=== PATIENT | male | born 1990 | race Caucasian/White ===

== ENCOUNTER 2018-01-14 20:12 | Emergency (ER) | payer OTHER ==
[2018-01-14 22:40] LABS: KETONE, URINE AUTO RFX NEGATIVE (NEGATIVE); LEUKOCYTE ESTERASE UR AUTO RFX NEGATIVE (NEGATIVE); MUCUS, URINE RFX SMALL (NEGATIVE); NITRITE, URINE AUTO RFX NEGATIVE (NEGATIVE); RBC, URINE AUTO RFX 0 /HPF (0-3); SPECIFIC GRAVITY UR AUTO RFX 1.021 (1.002-1.035); SQUAM EPITHELIAL CELL UR AURFX 0 /HPF (0-6); WBC, URINE AUTO RFX 0 /HPF (0-3)
[2018-01-14] MEDS: IBUPROFEN 400 MG TAB PO (23:45)
[2018-01-14] MEDS: cefTRIAXone SOD 250 MG VIAL (J0696) IM (23:45)
[2018-01-14] MEDS: LevoFLOXacin 500 MG TABLET PO (23:45)
[2018-01-15] MEDS ORDERED: LIDOCAINE 1% MDV 20ML VIAL As Ordered (00:03)
[2018-01-15 00:21] LABS: CHLAMYDIA DNA AMPLIFICATION NEGATIVE (NEGATIVE); GC DNA AMPLIFICATION NEGATIVE (NEGATIVE)
== END 2018-01-15 00:48 | disposition home or self-care (01) ==
LOC: M ED 01-15 00:48
DX: N45.1 Epididymitis (principal)
CPT/HCPCS: J0696